=== PATIENT | female | born 1950 | race Caucasian/White ===

== ENCOUNTER → 2017-02-03 17:32 | Outpatient (CLI) | payer MEDICARE ==
[2011-09-16 13:00] VITALS: BMI 35.2
== END | disposition home or self-care (01) ==
LOC: D.MAMMO 15:15
DX: Z12.31 Encounter for screening mammogram for malignant neoplasm of breast (principal)

== ENCOUNTER → 2018-05-24 18:25 | Outpatient (CLI) | payer MEDICARE ==
[2011-09-16 13:00] VITALS: BMI 35.2
== END | disposition home or self-care (01) ==
LOC: D.MAMMO 05-18 16:15
PROVIDERS: ATTEND Nurse Practitioner
DX: Z12.31 Encounter for screening mammogram for malignant neoplasm of breast (principal)

== ENCOUNTER 2020-05-06 11:15 | Outpatient (CLI) | payer MEDICARE, OTHER ==
[2011-09-16 13:00] VITALS: BMI 35.2
== END 2020-05-06 23:59 | disposition home or self-care (01) ==
LOC: D.MAMMO 11:15
PROVIDERS: ATTEND Nurse Practitioner
DX: Z12.31 Encounter for screening mammogram for malignant neoplasm of breast (principal)